=== PATIENT | female | born 2005 | race Hispanic/Latino ===

== ENCOUNTER 2024-03-17 20:41 | Day surgery (SDC) | payer OTHER ==
[2024-03-17 21:06] VITALS: BMI 36.2
[2024-03-17] MEDS ORDERED: hydrALAZINE 20 MG/ML VIAL SLOW IVP PRN (21:41)
[2024-03-17] MEDS ORDERED: Lactated Ringer's 1,000 ML IV SCH (23:15)
[2024-03-18 00:03] LABS: Bilirubin Neg (Negative); Blood, Urine 10 (Negative); Clarity Clear (Clear); Glucose, Urine (Dipstick) Normal (Negative); Ketone, Urine 15 mg/dL (Negative); Leukocyte 25 (Negative); Nitrite Negative (Negative); Protein, Urine (Dipstick) Negative (Neg-Trace); Specific Gravity, Urine 1.005 (1.005-1.030); Urobilinogen Normal mg/dL (Less than 2)
[2024-03-18] MEDS ORDERED: Lactated Ringer's 1,000 ML IV SCH (00:15)
[2024-03-18 00:25] LABS: Bacteria/HPF Rare-Few HPF (None Seen); CAUTI Indications for Culture Pregnancy; RBC/HPF 0-3 HPF (0-3); Squamous Epithelial 0-3 HPF (0-3); WBC/HPF 0-3 HPF (0-3)
[2024-03-18 00:26] LABS: Urine Culture Reflex Yes Yes
[2024-03-20 00:18] LABS: Group B Streptococcus by PCR Not Detected (NotDetected)
== END 2024-03-18 00:45 | disposition home or self-care (01) ==
LOC: CSHLD/OP 20:41
PROVIDERS: ATTEND Family Medicine
DX: O47.03 False labor before 37 completed weeks of gestation, third trimester (principal); O99.013 Anemia complicating pregnancy, third trimester; O00.01 Abdominal pregnancy with intrauterine pregnancy; O98.813 Other maternal infectious and parasitic diseases complicating pregnancy, third trimester; B37.31 Acute candidiasis of vulva and vagina; Z3A.35 35 weeks gestation of pregnancy
CPT/HCPCS: 81001; 87086; 87480; 87510; 87653; 87660; 96360; 99283; 99284

== ENCOUNTER 2024-04-06 01:12 | Day surgery (SDC) | payer OTHER ==
[2024-04-06 01:32] VITALS: BMI 36.3
[2024-04-06] MEDS ORDERED: hydrALAZINE 20 MG/ML VIAL SLOW IVP PRN (02:07)
[2024-04-06] MEDS ORDERED: Lactated Ringer's 1,000 ML IV SCH (02:45)
[2024-04-06] MEDS: Acetaminophen 500 MG TAB PO SCH (02:52)
[2024-04-06] MEDS: Lactated Ringer's 1,000 ML IV SCH (03:10)
[2024-04-06 03:30] LABS: Bilirubin Neg (Negative); Blood, Urine Negative (Negative); Clarity Clear (Clear); Glucose, Urine (Dipstick) Normal (Negative); Ketone, Urine 15 mg/dL (Negative); Leukocyte Negative (Negative); Nitrite Negative (Negative); Protein, Urine (Dipstick) 15 mg/dl (Neg-Trace)
[2024-04-06 03:36] LABS: Bacteria/HPF None Seen HPF (None Seen); CAUTI Indications for Culture Pregnancy; RBC/HPF None Seen HPF (0-3); Urine Culture Reflex Yes Yes; WBC/HPF 0-3 HPF (0-3)
== END 2024-04-06 05:30 | disposition home or self-care (01) ==
LOC: CSHLD/OP 01:12
PROVIDERS: ATTEND Family Medicine
DX: O47.1 False labor at or after 37 completed weeks of gestation (principal); O99.013 Anemia complicating pregnancy, third trimester; O99.213 Obesity complicating pregnancy, third trimester; Z3A.38 38 weeks gestation of pregnancy
CPT/HCPCS: 81001; 87086; 87480; 87510; 87660

== ENCOUNTER 2024-04-06 12:57 | Inpatient (IN) | payer OTHER ==
[2024-04-06] MEDS ORDERED: Ondansetron PF 4 MG/2 ML Vial IVP PRN ×2 (14:03→15:03)
[2024-04-06] MEDS ORDERED: hydrALAZINE 20 MG/ML VIAL SLOW IVP PRN (14:03)
[2024-04-06] MEDS ORDERED: Ibuprofen 800 MG TAB PO PRN (14:03)
[2024-04-06] MEDS ORDERED: Misoprostol 200 MCG TAB PR PRN (14:03)
[2024-04-06] MEDS ORDERED: Diphenoxylate HCl/Atropine Tablet PO PRN (14:03)
[2024-04-06] MEDS ORDERED: Acetaminophen 500 MG TAB PO PRN (14:03)
[2024-04-06] MEDS ORDERED: Carboprost 250 MCG/ML AMP IM PRN (14:03)
[2024-04-06] MEDS ORDERED: Promethazine HCl 25 MG/ML VIAL IM PRN ×2 (14:03→15:03)
[2024-04-06] MEDS ORDERED: Methylergonovine 0.2 MG/ML VIAL IM PRN (14:03)
[2024-04-06] MEDS ORDERED: Tranexamic Acid 1,000 MG/10 ML VIAL IVP PRN (14:03)
[2024-04-06] MEDS ORDERED: Lidocaine 1% (PF) 30 ML VIAL SC PRN (14:03)
[2024-04-06 14:13] LABS: Hematocrit 33.1 % (34.9-44.5); Hemoglobin 11.4 g/dL (12.0-15.5); Mean Corpuscular HGB CONC 34.4 g/dL (32.0-36.0); Mean Corpuscular Hemoglobin 28.9 pg (27.0-33.0); Mean Platelet Volume 11.7 fL (7.4-10.4); Platelet Count 180 10x3/uL (150-450); RBC Distribution Width 13.4 % (11.5-14.5); Red Blood Cell (RBC) Count 3.94 10x6/uL (3.90-5.03); White Blood Cell (WBC) Count 12.5 10x3/uL (3.5-10.5)
[2024-04-06] MEDS ORDERED: Oxytocin 30 units/NS 500 ML 500 ML IV SCH ×2 (14:15)
[2024-04-06 14:43] LABS: HBsAg Index 0.17 S/CO (0-0.99); Hep B Surf Ag - L&D Non-Reactive S/CO (NonReactive)
[2024-04-06 14:44] LABS: Syphilis Antibody Nonreactive (Nonreactive); Syphilis Antibody Index 0.12 S/CO (<1.00 Non-Reactive)
[2024-04-06] MEDS: fentaNYL/Ropivacaine Epidural 100 ML ONE (14:46)
[2024-04-06] MEDS ORDERED: diphenhydrAMINE 50 MG/ML VIAL IVP PRN (15:03)
[2024-04-06] MEDS ORDERED: Naloxone HCl 0.4 mg/ml Vial IVP PRN ×2 (15:03)
[2024-04-06] MEDS ORDERED: Moisturizing Cream (Eucerin) 113 GM JAR TOP PRN (15:03)
[2024-04-06] MEDS ORDERED: Lactated Ringer's 500 ML IV PRN (15:03)
[2024-04-06] MEDS ORDERED: ePHEDrine Sulfate 50 MG/10 ML VIAL SLOW IVP PRN (15:03)
[2024-04-06] MEDS ORDERED: Acetaminophen 325 MG TAB PO PRN (15:03)
[2024-04-06] MEDS ORDERED: fentaNYL 2 mcg/Ropivacaine 0.2% Epidural 100 ML CADD EPIDURAL SCH (15:15)
[2024-04-06] MEDS ORDERED: Communication Order-Pharmacy FS SCH (15:15)
[2024-04-06] MEDS: Dextrose 5%-Lactated Ringers 1,000 ML IV SCH (16:59)
[2024-04-06] MEDS: Oxytocin 30 units/NS 500 ML 500 ML IV SCH (18:45)
[2024-04-06] MEDS: Lactated Ringer's 1,000 ML IV SCH (21:34)
[2024-04-07] MEDS ORDERED: Bicitra 30 ML UDCUP PO PRN (05:26)
[2024-04-07] MEDS ORDERED: Famotidine/PF 20 mg/2ml Vial SLOW IVP PRN (05:28)
[2024-04-07] MEDS ORDERED: Oxytocin 30 units/NS 500 ML 500 ML IVPB SCH (05:30)
[2024-04-07] MEDS ORDERED: CEFAZOLIN 2 GM in Sodium Chloride 0.9% 100 ML IVPB SCH (05:30)
[2024-04-07] MEDS ORDERED: Moisturizing Cream (Eucerin) 113 GM JAR TOP PRN (05:32)
[2024-04-07] MEDS ORDERED: fentaNYL 50 mcg/mL 1 mL Vial SLOW IVP PRN (05:32)
[2024-04-07] MEDS ORDERED: Naloxone HCl 0.4 mg/ml Vial IVP PRN ×2 (05:32)
[2024-04-07] MEDS ORDERED: HYDROmorphone 0.5 MG/0.5 ML SYRINGE SLOW IVP PRN (05:32)
[2024-04-07] MEDS ORDERED: Naloxone HCl 0.4 mg/ml Vial IV PRN (05:32)
[2024-04-07] MEDS ORDERED: Promethazine HCl 25 MG/ML VIAL IM PRN (05:32)
[2024-04-07] MEDS ORDERED: Meperidine HCl/PF 25 MG (1 mL) VIAL SLOW IVP PRN (05:32)
[2024-04-07] MEDS ORDERED: diphenhydrAMINE 50 MG/ML VIAL IVP PRN (05:32)
[2024-04-07] MEDS ORDERED: Ondansetron PF 4 MG/2 ML Vial IVP PRN ×3 (05:32→08:32)
[2024-04-07] MEDS ORDERED: Ketorolac Tromethamine 30 MG (1 mL) VIAL IVP SCH (05:45)
[2024-04-07] MEDS ORDERED: Communication Order-Pharmacy FS SCH (05:45)
[2024-04-07] MEDS ORDERED: Bupivacaine HCl 0.5%/Epinephrine 1:200,000/PF 30 ml Vial ONE (06:00)
[2024-04-07] MEDS ORDERED: Lidocaine 2% MPF 10 ML AMP (For Epidural Use) ONE (06:00)
[2024-04-07] MEDS ORDERED: Bupivacaine 0.25% HCL 30 ML VIAL ONE (06:00)
[2024-04-07] MEDS: Azithromycin 500 MG VIAL ONE (06:21)
[2024-04-07] MEDS: CEFAZOLIN 2 GM VIAL ONE (06:22)
[2024-04-07] MEDS: Morphine PF 10 MG/10 ML VIAL ONE (06:23)
[2024-04-07] MEDS: Dexamethasone 10 MG/ML VIAL ONE (06:23)
[2024-04-07] MEDS: Ondansetron PF 4 MG/2 ML Vial ONE (06:23)
[2024-04-07] MEDS: fentaNYL 50 mcg/mL 1 mL Vial ONE (06:23)
[2024-04-07] MEDS: Oxytocin 10 UNITS/ML VIAL ONE ×2 (06:24)
[2024-04-07] MEDS: Tranexamic Acid 1,000 MG/10 ML VIAL ONE (06:24)
[2024-04-07] MEDS: Azithromycin 500 MG in Sodium Chloride 0.9% 250 ML 250 ML IVPB SCH (06:24)
[2024-04-07] MEDS ORDERED: Milk Of Magnesia 30 ML UDCUP PO PRN (08:32)
[2024-04-07] MEDS ORDERED: hydrALAZINE 20 MG/ML VIAL SLOW IVP PRN (08:32)
[2024-04-07] MEDS ORDERED: Methylergonovine 0.2 MG/ML VIAL IM PRN (08:32)
[2024-04-07] MEDS ORDERED: Preparation H Ointment 28 GM TUBE PR PRN (08:32)
[2024-04-07] MEDS ORDERED: Misoprostol 200 MCG TAB VAG PRN (08:32)
[2024-04-07] MEDS ORDERED: Lanolin Ointment 7 GM TUBE TOP PRN (08:32)
[2024-04-07] MEDS ORDERED: Oxytocin 30 units/NS 500 ML 500 ML IV SCH (08:32)
[2024-04-07] MEDS ORDERED: Bisacodyl 10 MG SUPP PR PRN (08:32)
[2024-04-07] MEDS ORDERED: diphenhydrAMINE 25 MG CAP PO PRN (08:32)
[2024-04-07] MEDS ORDERED: Boostrix 0.5 ML (Tdap) VIAL (>/=7 yrs of age) IM ONE (08:32)
[2024-04-07] MEDS ORDERED: Benzocaine-Menthol 82.5 ML CAN TOP PRN (08:32)
[2024-04-07] MEDS ORDERED: HYDROcodone/Acetaminophen 5/325 mg Tablet PO PRN ×3 (10:50→18:00)
[2024-04-07] MEDS: Ketorolac Tromethamine 30 MG (1 mL) VIAL IVP PRN (13:14)
[2024-04-07 13:30] VITALS: BMI 36.3
[2024-04-07] MEDS: Docusate 100 MG CAP PO SCH (16:34)
[2024-04-07] MEDS: Prenatal Vitamin 1 TAB PO SCH (16:35)
[2024-04-07] MEDS: Ferrous Sulfate 325 MG TAB PO SCH (19:09)
[2024-04-07] MEDS ORDERED: Docusate 100 MG CAP PO SCH (21:00)
[2024-04-08] MEDS: Ketorolac Tromethamine 30 MG (1 mL) VIAL IVP PRN (04:25)
[2024-04-08] MEDS ORDERED: Ibuprofen 800 MG TAB PO SCH (06:00)
[2024-04-08 06:04] LABS: Hematocrit 27.7 % (34.9-44.5); Hemoglobin 9.4 g/dL (12.0-15.5)
[2024-04-08] MEDS: Phytonadione Neonatal 1 MG/0.5 ML AMP ONE (08:23)
[2024-04-08] MEDS: Hepatitis B Vaccine 10 MCG/0.5 ML SYR ONE (08:23)
[2024-04-08] MEDS: Erythromycin Base 0.5% Oint 1 GM TUBE ONE (08:23)
[2024-04-08] MEDS ORDERED: Prenatal Vitamin 1 TAB PO SCH (09:00)
[2024-04-08] MEDS: Ibuprofen 800 MG TAB PO SCH (13:13)
[2024-04-09 04:47] VITALS: BP 107/56; TEMP 98.5
[2024-04-09] MEDS: HYDROcodone/Acetaminophen 5/325 mg Tablet PO PRN (07:31)
== END 2024-04-09 11:55 | disposition home or self-care (01) | DRG 788 ==
LOC: CSHLD/OP 12:57 → CSHLD 14:43 → CSHPP 04-07 08:00
PROVIDERS: ADMIT Family Medicine; ATTEND Family Medicine
PROC: 10H073Z Insertion of Monitoring Electrode into Products of Conception, Via Natural or Artificial Opening (ICD-10-PCS; 2024-04-06)
PROC: 4A1H7CZ Monitoring of Products of Conception, Cardiac Rate, Via Natural or Artificial Opening (ICD-10-PCS; 2024-04-06)
PROC: 10H07YZ Insertion of Other Device into Products of Conception, Via Natural or Artificial Opening (ICD-10-PCS; 2024-04-06)
PROC: 10D00Z1 Extraction of Products of Conception, Low, Open Approach (ICD-10-PCS; principal; 2024-04-07)
DX: O36.63X0 Maternal care for excessive fetal growth, third trimester, not applicable or unspecified (principal); O64.0XX0 Obstructed labor due to incomplete rotation of fetal head, not applicable or unspecified; O99.214 Obesity complicating childbirth; Z37.0 Single live birth; E66.9 Obesity, unspecified; Z3A.38 38 weeks gestation of pregnancy
CPT/HCPCS: 36415; 51702; 76815; 81001; 85014; 85018; 85027; 86780; 86850; 86900; 86901; 87086; 87340; 87480; 87510; 87660; 96360; 99284; 99285; J0665; J1100; J1885; J2274; J2405; J2590; J3010